=== PATIENT | female | born 1990 | race Caucasian/White ===

== ENCOUNTER 2019-02-17 08:06 | Day surgery (SDC) | payer OTHER ==
[2019-02-13 14:45] VITALS: BMI 31.3
[~2019-02-17 08:06] MED LIST: SODIUM CHLORIDE 0.9% 1,000 ML IV SCH
[2019-02-17] MEDS ORDERED: SODIUM CHLORIDE 0.9% 500 ML 500 ML IV ONE (08:20)
[2019-02-17 08:24] VITALS: RESP 16; TEMP 98.2
[2019-02-17 10:10] VITALS: BP 142/85; PULSE 97
--- NOTE | 2019-02-17 10:22 | P.PCN ---
Preoperative Diagnosis: Diagnosis Recurrent syncope Twelve-lead ECG shows sinus mechanism normal WA narrow QRS normal ST segments no delta waves no epsilon waves normal QT interval of less than 400 ms Tilt table test per protocol Baseline blood pressure 139/79 mmHg Baseline heart rate 86 beats a minute She was tilted upright at an angle of 70 per protocol. She complained of dizziness and sweating along with nausea during the tilt table test. Corresponding to these symptoms there were dips and blood pressure down to 92 mmHg systolic but her blood pressure within come right back and she would feel normal. No syncope Impression Normal twelve-lead ECG Episodes of dizziness and sweating nausea associated with a sudden drop in blood pressure, but transient, preceded by sinus tachycardia Consistent with neurocardiogenic phenomena
== END 2019-02-17 10:08 | disposition home or self-care (01) ==
LOC: CATHEP 08:06
PROVIDERS: ATTEND Internal Medicine Clinical Cardiac Electrophysiology
DX: R42 Dizziness and giddiness (principal); R61 Generalized hyperhidrosis; R11.0 Nausea; R03.1 Nonspecific low blood-pressure reading; R00.0 Tachycardia, unspecified; R07.89 Other chest pain; R00.2 Palpitations; I34.1 Nonrheumatic mitral (valve) prolapse; Z82.49 Family history of ischemic heart disease and other diseases of the circulatory system; Z91.040 Latex allergy status; Z88.0 Allergy status to penicillin; Z88.2 Allergy status to sulfonamides; Z79.899 Other long term (current) drug therapy
CPT/HCPCS: 93660

== ENCOUNTER → 2022-08-21 | Outpatient (CLI) | payer OTHER ==
--- NOTE | 2022-08-21 23:25 | MR ---
EXAMINATION TYPE: MR lumbar spine wo/w con DATE OF EXAM: 08/21/2022 COMPARISON: Outside MRI lumbar spine January 31, 2022. Outside report not available for correlation. HISTORY: LOW BACK PAIN, NUMBNESS/WEAKNESS INTO LEGS, LT SIDE WORSE TECHNIQUE: Multiplanar, multisequence images of the lumbar spine is performed without and with IV contrast, util izing 10 mL intravenous Gadavist FINDINGS: Sagittal images of the lumbar spine show vertebral body heights and alignment to remain sat isfactory. There is disc desiccation L5-S1 level on current study. Disc space heights are preserved. The conus medullaris remains normal in position and signal ending mid L1 level. The bone marrow sig nal intensity is within normal limits. No abnormal postcontrast enhancement is seen. Axial images show T12-L1 through the L4-L5 levels to remain within normal limits. Axial images at the L5-S1 level shows tiny central disc protrusion or spinal canal is preserved. Bila teral neural foramina are patent IMPRESSION: Mild to minimal degenerative change lumbosacral junction otherwise unremarkable study.
== END | disposition home or self-care (01) ==
LOC: RADMRIMAIN 14:54
PROVIDERS: ATTEND Orthopaedic Surgery
DX: M51.26 Other intervertebral disc displacement, lumbar region (principal); M47.817 Spondylosis without myelopathy or radiculopathy, lumbosacral region
CPT/HCPCS: 72158

== ENCOUNTER → 2022-10-24 | Day surgery (SDC) | payer OTHER ==
[2022-10-19 12:27] VITALS: BMI 34.9
[~2022-10-24] MED LIST changes: +BENZOCAINE SPRAY 1 CAN TOPICAL ONE; +MIDAZOLAM 2 MG/2 ML VIAL IV ONE; +ONDANSETRON 4 MG/2 ML VIAL IVP ONE; +ONDANSETRON 4 MG/2 ML VIAL ONE; -SODIUM CHLORIDE 0.9% 1,000 ML IV SCH; +SODIUM CHLORIDE 0.9% 500 ML 500 ML IV ONE; +fentaNYL (PF) 50 MCG/ML 2 ML AMP IV ONE; +fentaNYL (PF) 50 MCG/ML 2 ML AMP ONE
[2022-10-24 11:27] VITALS: TEMP 98.5
[2022-10-24] MEDS: MIDAZOLAM 2 MG/2 ML VIAL IV ONE ×2 (12:44→12:46)
--- NOTE | 2022-10-24 13:11 | P.PCN ---
Date of Procedure: 10/24/22 Operative Findings: TRANSESOPHAGEAL ECHOCARDIOGRAM [employer]OR [employer]: ANGIE PANDA MD, RPVI INDICATION: Atrial septal defect SEDATION: Conscious sedation COMPLICATION: None LEVEL OF SEDATION Moderate to sedation length of 12 minutes PROCEDURE DESCRIPTION: After obtaining an informed consent, the patient was brought to transesophageal echocardiogram room. Pulse oximetry and heart monitors were attached to the patient. The patient throat was sprayed using lidocaine. The patient was turned into left lateral position. After that a bite guard was placed. After an appropriate conscious sedation was initiated, the transesophageal echocardiogram was advanced through a bite guard into the mid esophagus. A 2-D echocardiogram images, color Doppler images, continuous wave images, pulse-wave images, of various cardiac structure were performed. After that the transesophageal echocardiogram probe was advanced into the stomach and fixed to obtain transgastric view was. The probe was brought into the mid esophagus. Inter-atrial septum was interrogated using 2D images, color Doppler images, and then contrast study. After that transesophageal echocardiogram was withdrawn out and upon withdrawing the descending thoracic aorta all the way up to the arch was evaluated. FINDING: The study was technically very difficult because the patient was agitated throughout the study. The left ventricular dimension and systolic function appeared to be within normal limits the right ventricular dimension and systolic function appeared to be within normal limits PDA intracardiac valves were not well evaluated because we have to withdraw the probe out. We interrogated the interatrial septum and there is no evidence of patent foramen ovale was identified by color-flow Doppler or by contrast study. No evidence of any at rial septal defect as well CONCLUSION: 1. Intact interatrial septum with no evidence of shunt
[2022-10-24 14:23] VITALS: RESP 16
[2022-10-24 14:54] VITALS: BP 123/81; PULSE 76
== END ==
LOC: CATHCVL 10:58
PROVIDERS: ATTEND Internal Medicine Interventional Cardiology
DX: Q21.10 Atrial septal defect, unspecified (principal); I34.0 Nonrheumatic mitral (valve) insufficiency; E66.3 Overweight; Z82.49 Family history of ischemic heart disease and other diseases of the circulatory system; Z91.040 Latex allergy status; Z88.2 Allergy status to sulfonamides; Z68.35 Body mass index [BMI] 35.0-35.9, adult; Z79.899 Other long term (current) drug therapy
CPT/HCPCS: 93312; 93320; 93325; 81025; J2250; J2405; J3010